=== PATIENT | male | born 1985 | race African-American/Black ===

== ENCOUNTER 2018-10-15 09:12 | Emergency (ER) | payer OTHER ==
[2018-10-15] MEDS ORDERED: NORMAL SALINE 1000 ML 1,000 ML IV ONE (09:34)
[2018-10-15] MEDS ORDERED: MORPHINE SULFATE 10 MG/ML INJ IV ONE (09:34)
[2018-10-15] MEDS ORDERED: ONDANSETRON HCL INJ/PF 4 MG/2 ML SDV IV ONE (09:34)
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
--- NOTE | 2018-10-15 09:45 | RADIOLOGY REPORT (SQ) ---
EXAM DESCRIPTION: SHOULDER RIGHT 2 OR MORE VIEWS COMPLETED DATE/TIME: 10/15/2018 9:34 am REASON FOR STUDY: deformity COMPARISON: None. NUMBER OF VIEWS: Two views right shoulder, AP and scapular Y. LIMITATIONS: None. FINDINGS: Anterior shoulder dislocation without gross fracture. AC joint intact. No pneumothorax o r gross rib fracture. OTHER: No other significant finding. IMPRESSION: Anterior shoulder dislocation. TECHNICAL DOCUMENTATION: JOB ID: [id number] Reading location - IP/workstation name: [email or web address]
[2018-10-15] MEDS ORDERED: ETOMIDATE INJ/PF 20 MG/10 ML SDV IV ONE (10:21)
[2018-10-15] MEDS ORDERED: FENTANYL CITRATE INJ/PF 100 MCG/2 ML AMPUL IV ONE (10:22)
[2018-10-15 12:03] VITALS: BP 166/101
--- NOTE | 2018-10-15 12:06 | RADIOLOGY REPORT (SQ) ---
EXAM DESCRIPTION: SHOULDER RIGHT 1 VIEW COMPLETED DATE/TIME: 10/15/2018 11:31 am REASON FOR STUDY: Post reduction COMPARISON: Pre reduction radiographs from same date. NUMBER OF VIEWS: One view, AP right shoulder. LIMITATIONS: None. FINDINGS: Anterior dislocation looks reduced on this single view. No gross fracture. OTHER: No other significant finding. IMPRESSION: Reduced right shoulder dislocation. TECHNICAL DOCUMENTATION: JOB ID: [id number] Reading location - IP/workstation name: [email or web address]
== END 2018-10-15 12:13 | disposition home or self-care (01) ==
LOC: ER 09:12
PROC: 0RSJXZZ Reposition Right Shoulder Joint, External Approach (ICD-10-PCS; principal; 2018-10-15)
DX: S43.014A Anterior dislocation of right humerus, initial encounter (principal); M79.644 Pain in right finger(s); M25.511 Pain in right shoulder; I10 Essential (primary) hypertension; V87.7XXA Person injured in collision between other specified motor vehicles (traffic), initial encounter
CPT/HCPCS: 99283; 96361; 99152; 96374; 96375; 73020; 73030; 23650; L3650; J2270; J2405; J7030; J3490